=== PATIENT | female | born 1975 | race Hispanic/Latino ===

== ENCOUNTER → 2023-05-22 | Outpatient (CLI) | payer BC ==
[~2023-05-22] MED LIST: FLUT16H NASAL; LEVO50CA4 PO; LORA10TA7 PO; MONT-39 PO; NITR100C4 PO; OMEP40CA21 PO; PHEN-948 PO; SERT-440 PO; VITAD50000 PO
== END | disposition home or self-care (01) ==
LOC: RAH 08:13
PROVIDERS: ATTEND Internal Medicine
DX: R30.0 Dysuria (principal)
CPT/HCPCS: 74176